=== PATIENT | female | born 1980 | race Caucasian/White ===

== ENCOUNTER 2023-05-02 15:35 | Emergency (ER) | payer BC, SELFPAY ==
[2023-05-02 15:51] VITALS: BP 154/79
[2023-05-02 16:31] LABS: % Basophils 0.6 % (0-2); % Eosinophils 2.3 % (0-6); % Immature Granulocytes 0.2 % (0-0.5); % Lymphocytes 22.5 % (20.5-51.1); % Monocytes 4.7 % (1.7-9.3); % Neutrophils 69.7 % (42.2-75.2); Absolute Eosinophils 0.1 10^3/uL (0-0.7); Absolute Lymphocytes 1.4 10^3/uL (1.2-3.4); Absolute Monocytes 0.3 10^3/uL (0.1-0.6); Absolute Neutrophils 4.3 10^3/uL (1.4-6.5); Hematocrit 37.2 % (37.0-47.0); Mean Corp Hgb Conc. 34.9 g/dL (33.0-37.0); Mean Corpuscular Hgb 30.3 pg (27.0-31.0); Mean Corpuscular Volume 86.7 fL (81.0-99.0); Nucleated Red Blood Cells % 0 %; Platelet Count 266 10^3/uL (130-400); Red Blood Cell Count 4.29 10^6/uL (4.20-5.40); Red Cell Dist. Width 13.2 % (11.5-14.5); White Blood Cell Count 6.2 10^3/uL (4.8-10.8)
[2023-05-02 16:40] LABS: INR 1.01; PT 13.3 Sec (11.4-14.6)
[2023-05-02 16:41] LABS: ALT (SGPT) 33 U/L (0-35); AST (SGOT) 32 U/L (14-36); Albumin 4.2 g/dl (3.5-5.0); Alkaline Phosphatase 88 U/L (38-126); Blood Urea Nitrogen 11 mg/dl (7-17); Calcium 9.3 mg/dl (8.4-10.2); Carbon Dioxide 29 mmol/L (22-30); Chloride 101 mmol/L (98-107); Glucose 107 mg/dl (70-99); Potassium 3.7 mmol/L (3.5-5.1); Sodium 136 mmol/L (135-145); Total Bilirubin 0.5 mg/dl (0.2-1.3); eGFR > 60.00
[2023-05-02 16:53] LABS: Troponin I < 0.012 ng/ml
--- NOTE | 2023-05-02 18:49 | ED.GENMED ---
History of Present Illness
General
Chief Complaint: Chest Pain
Source: patient
Exam Limitations: none
Time Seen by Provider: 05/02/23 18:13
Nursing documentation reviewed up to this point in time: agreed with
Travel History
Have you had any contact with someone who has COVID-19?: No
Do you have any symptoms of coronavirus? Fever > 100 degrees, chills, cough, shortness of breath, sore throat, loss of taste or smell, muscle aches, or headache?: No
History of Present Illness
History of Present Illness:
Patient is a 42-year-old female who presents to the ER for evaluation. Patient is concerned that she may have a' clot' in her left lower leg. She reports has a history of superficial clots in the past and she noticed an area of redness to the left
ankle yesterday. She does report the area is very sore. She also felt some discomfort her left posterior thigh today.
In addition, she had chest pain yesterday at 1 PM while sitting at home at work. She reports it has been less than 3 hours. She had no radiation of pain she did feel little tingling her arm but she was not short of breath with symptoms. Chest
pain resolved on its own but then redeveloped again at 2 PM today she described this is more of a tightness which the prompted her to come to the ER. Patient reports she has been very stressed at work and did consider anxiety as she does have a
history of anxiety.
She does not smoke no oral contraceptives.
She does not know what her cholesterol is does have PCP buy only goes when sick.
Past History
Past History
ED Past Medical History: Asthma and Other (Possible celiac disease)
ED Past Surgical History: Other (sinus surgery)
Social History
Tobacco: Non-smoker
Alcohol: None
Drug: None
Personal:
Living: with family
Family History
Family History: Other (Mother with a history of DVT during )
Review of Systems
Review of Systems
Allergies reviewed?: Yes
All Other Systems: ROS reviewed and negative except as documented in HPI and ROS
Constitutional: Reports no symptoms; Denies fever, fatigue or chills
EENT: Reports no symptoms
Respiratory: Reports no symptoms; Denies trouble breathing
Cardiac: Reports chest pain (resolved now ); Denies diaphoresis, palpitations or syncope
ABD/GI: Reports no symptoms
: Reports no symptoms
Musculoskeletal: Reports other (small area of redness to left lateral ankle )
Skin: Reports other (redness to left ankle )
Neurological: Reports no symptoms
Psychiatric: Reports no symptoms
Phy Exam
General Physical Exam
General Presentation: no apparent distress
General age: appears stated age
General Skin: warm and dry
General Habitus: normal
General Mental: alert
General Hydration: appears well hydrated
Cardiovascular Exam
Cardiovascular Exam: regular rate/rhythm, no murmur and normal peripheral pulses
Pulmonary Exam
Pulmonary Exam: lungs clear and no respiratory distress
Neurological Exam
Neurological Exam: alert and oriented x3
Musculoskeletal Exam
Musculoskeletal Exam: full ROM and other (small amt of erythema to left ankle mild tenderness )
Skin Exam
Skin Exam: normal color and warm/dry
Psychiatric Exam
Psychiatric Exam: normal mood/affect
Scores
Heart Score for Chest Pain Patients
STEMI patient?: Not applicable
Course
Orders/Labs/Results
Orders:
Orders
05/02/23 15:56
Electrocardiogram (*1) Urgent
Reason for Study: Chest Pain
EKG- Treatment ONCE
05/02/23 16:16
Complete Blood Count/With Diff Urgent
Comprehensive Metabolic Panel Urgent
Prothrombin Time Urgent
Troponin I Urgent
05/02/23 19:28
Venous Doppler Lwr Ext Left [US Periph Venous LOWER Ext LT] Urgent
Comment:
Reason For Exam: pain
05/02/23 19:48
DDimer [D-Dimer] Urgent
05/02/23 20:58
Chest [CR Chest - 2 Views ] Urgent
Comment:
Reason For Exam: cp
Abnormal Lab Results
05/02/23
16:16
Glucose 107 H mg/dl
(70-99)
05/02/23 16:16
05/02/23 16:16
Vital Signs
Initial and Last Documented VS:
Initial Vital Signs
Temp Pulse Resp BP Pulse Ox
98.2 F 87 20 154/79 96
05/02/23 15:51 05/02/23 15:51 05/02/23 15:51 05/02/23 15:51 05/02/23 15:51
Last Documented Vital Signs
Temp Pulse Resp BP Pulse Ox
98.3 F 90 13 133/79 98
05/02/23 19:28 05/02/23 19:28 05/02/23 19:28 05/02/23 19:28 05/02/23 19:28
MDM/Problems Addressed
Differential Diagnosis Includes:
Not limited to musculoskeletal chest pain, less likely ACS less likely PE possible DVT possible cellulitis, anxiety possible superficial thrombophlebitis
MDM/Problems Addressed:
Patient is a 42-year-old female who presented with chest pain patient had chest pain for several hours yesterday which resolved on its own but then had chest pain again today which the prompted her to come to the ER. She has no cardiac history.
She is unsure if her collapse she does not smoke. She does report history with grandparents of cardiac disease. She presents awake alert no acute distress asymptomatic no chest pain or shortness of breath here in the ER negative cardiac troponin
negative D-dimer negative chest x-ray. EKG NSR hr 73 no acute findings.
Patient has remained asymptomatic here in the ER will DC with chest pain hotline
With regards to patient's redness to the left ankle there is small amount of redness no documented superficial thrombophlebitis or DVT on ultrasound no fevers. Patient's white count is normal we will treat for mild cellulitis with close outpatient
follow-up with PCP.
Chronic conditions affecting care:
anxiety
*Radiology
Radiology exam reviewed: radiology read reviewed (No evidence of DVT of the left lower extremity)
*Pulse Oximetry
Patient hypoxic: no
*EKG
Interpreted by ED Provider?: Yes
Interpretation: normal
Heart Rate: 73
Rate: normal
Rhythm: sinus
QRS Pattern: normal QRS
Ischemia: no ischemia
*Pier Master Assistant Interpretation
Rate: normal
*Critical Care Note
Total Time (30-74mins, 75-104mins- exclusive of procedures): Not Applicable
ED Attending Note
-
Portions of this chart may have been created with voice recognition software.� Occasional wrong word or��sound alike� substitutions may have occurred due to the inherent limitations of voice recognition software.
Discharge Plan
Departure
Patient Disposition: Home (Routine Discharge)
Date of Disposition: 05/02/23
Time of Disposition: 22:43
Patient with high blood pressure during this ER visit?: Yes
Covid-19: Not Applicable
Discharge Problem:
Chest pain, mild cellulitis left ankle
Instructions: Cellulitis (Skin Infection), Adult (DC), Chest Pain DCA Follow Up, BLOOD PRESSURE
Prescriptions:
New
cephalexin 500 mg capsule
500 mg PO Q6H Qty: 28 0RF
No Action
multivitamin Tablet
1 tab PO DAILY
cetirizine [Zyrtec] 10 mg Tablet
10 mg PO DAILY
Vitamin C 100 mg Tablet,Chewable
200 mg PO DAILY
omeprazole 20 mg Tablet,Delayed Release (Dr/Ec)
20 mg PO DAILY
Referrals:
Darya Serna PA-C [Family Provider] -
Robert Carmen MD [Active] -
Activity Restrictions/Additional Instructions:
As discussed follow-up with cardiology. You are placed on the cardiology hotline you should receive a phone call in the next several days or if you do not please give the office a call to schedule an appointment.
Also as discussed a prescription for Keflex was sent to your pharmacy to treat for mild cellulitis of left ankle. Closely follow-up with your family doctor the next of days for reevaluation. Return if any worsening of symptoms of increased pain
redness red streaking fever chills
Interventions
Interventions:
*Risk Screen - Suicide Last Done: 05/02/23 15:51
*General Assessment Last Done: 05/02/23 15:51
*Neglect/Abuse Screening Last Done: 05/02/23 15:51
*ED COVID-19 Vaccine History Last Done: 05/02/23 19:27
ED- Cardiac Assessment Last Done: 05/02/23 19:23
ED- Pulmonary Assessment Last Done: 05/02/23 19:23
ED-Peripheral Vascular Assessment Last Done: 05/02/23 19:25
ED-Skin Assessment Last Done: 05/02/23 19:27
[2023-05-02 19:28] VITALS: BP 133/79
[2023-05-02 20:09] LABS: D-Dimer < 0.27 ug/mlFEU (0.00-0.50)
[2023-05-02] MEDS: KEFLEX 500 MG PO (22:47)
== END 2023-05-02 22:58 | disposition home or self-care (01) ==
LOC: EMR 15:35
PROVIDERS: Nurse Practitioner; EMERGENCY PHYSICIAN Student in an Organized Health Care Education/Training Program; FAMILY PHYSICIAN Physician Assistant Medical
DX: L03.116 Cellulitis of left lower limb (principal); R07.89 Other chest pain; J45.909 Unspecified asthma, uncomplicated; F41.9 Anxiety disorder, unspecified; Z82.49 Family history of ischemic heart disease and other diseases of the circulatory system
CPT/HCPCS: 99284; 71046; 80053; 84484; 85025; 85379; 85610; 93005; 93971

== ENCOUNTER → 2023-10-18 08:33 | Outpatient (REF) | payer BC, SELFPAY | LOC: HWWDC 08:33 | PROVIDERS: ATTENDING PHYSICIAN Physician Assistant Medical | DX: Z12.31 Encounter for screening mammogram for malignant neoplasm of breast (principal) | CPT/HCPCS: 77063; 77067 ==

== ENCOUNTER → 2023-12-21 16:26 | Outpatient (REF) | payer BC, SELFPAY | LOC: HWRAD 16:26 | PROVIDERS: ATTENDING PHYSICIAN Physician Assistant Medical | DX: R05.1 Acute cough (principal) | CPT/HCPCS: 71046 ==

== ENCOUNTER 2024-01-17 17:59 | Emergency (ER) | payer BC, SELFPAY ==
[2024-01-17 18:01] VITALS: BP 142/85
[2024-01-17 19:39] VITALS: BP 141/74
--- NOTE | 2024-01-17 19:56 | ED.GENMED ---
History of Present Illness
General
Chief Complaint: Breathing Problem
Source: patient
Exam Limitations: none
Time Seen by Provider: 01/17/24 19:05
Nursing documentation reviewed up to this point in time: agreed with
History of Present Illness
History of Present Illness:
43-year-old female with a history of mild asthma
Says she got sick with several infections starting mid November and ultimately in mid December had a cough with a high fever and was diagnosed with pneumonia.
Patient was treated with an antibiotic which she cannot recall. She said prior to that she had already had Augmentin and then a Z-Marek for an ear infection and bronchitis. She said she was also prescribed 7 days of prednisone 50 mg on along
with the antibiotic. She got the antibiotic for 10 days. Patient says her cough did improve somewhat with her albuterol and the antibiotics but never went away. It seems to have resurface over the last couple weeks. Then 5 days ago she noticed a
painful red palpable cordlike soft tissue mass in her posterior right thigh. Patient says she was having some calf pain as well. She has a history of superficial thrombophlebitis has been treated with either aspirin or NSAIDs, she is not sure
which. She has never been anticoagulated but her mom has a history of DVTs. Patient says that a few days later she started having burning chest pain with cough which is worse when she takes a deep breath. She went to her doctor today where she
was found to be wheezy, having a spastic cough and the provider was concerned about her having a PE so they sent her in. Patient has not had a new fever, hemoptysis, significant shortness of breath, exertional chest pain, vomiting or diarrhea.
There is no been no recent long travel
Past History
Past History
ED Past Medical History: Asthma and Other (Possible celiac disease)
ED Past Surgical History: Other (sinus surgery)
Social History
Tobacco: Non-smoker
Alcohol: None
Drug: None
Personal:
Living: with family
Family History
Family History: Other (Mother with a history of DVT during )
Review of Systems
Review of Systems
Allergies reviewed?: Yes
All Other Systems: Not applicable
Phy Exam
Physical Exam
Physical Exam:
GENERAL: Alert , in no apparent distress, occasional cough
EYE: pupils equal and reactive
NECK: Supple
ENT: b/l TM s clear, pharynx erythematous but no tonsillar hypertrophy or exudates
CARDIAC: Regular rate and rhythm, no edema
LUNGS: End expiratory wheezing, occasional spastic cough, no respiratory distress
ABDOMEN: Soft, without focal tenderness, no r/g, no cvat, normal bowel sounds
NEUROLOGICAL: Alert and oriented, no focal neuro deficits
SKIN: Warm and dry, skin intact.
Patient has about a 10 cm palpable erythematous cord in the posterior right thigh starting from just behind her knee and going proximally that is slightly tender
The calf is not swollen or tender
MUSCULOSKELETAL: No edema, well perfused.
PSYCH: Normal and appropriate interaction.
Course
Orders/Labs/Results
Orders:
Orders
01/17/24 19:26
Electrocardiogram (*1) Stat
Reason for Study: Other
Other Reason for Exam: pneumonia
CT Chest Pe Study Urgent
Comment: thrombophlebitis vs dvt
Reason For Exam: sob, hest pain, wheezing; pna 1 mo ago; superfiica
EKG- Treatment ONCE
Venous Doppler Lwr Ext Rt [US Periph Venous LOWER Ext RT] Urgent
Comment:
Reason For Exam: right leg superf thrombophleb vs dvt
01/17/24 19:34
Complete Blood Count/With Diff Urgent
Comprehensive Metabolic Panel Urgent
PTT Urgent
Prothrombin Time Urgent
01/17/24 21:56
Ipratropium/Albuterol Sulfate [Duoneb] 3 ml INH R NOW STA
Prednisone [Deltasone] 50 mg PO NOW STA
01/17/24 22:13
Aspirin Chewable [Low Strength Aspirin] 81 mg PO NOW STA
Abnormal Lab Results
01/17/24
19:34
RBC 3.93 L 10^6/uL
(4.20-5.40)
Hct 35.0 L %
(37.0-47.0)
MPV 10.5 H fL
(7.4-10.4)
Absolute Eos (auto) 0.9 H 10^3/uL
(0-0.7)
Eosinophils % 12.6 H %
(0-6)
BUN 6 L mg/dl
(7-17)
Glucose 116 H mg/dl
(70-99)
01/17/24 19:34
01/17/24 19:34
Vital Signs
Initial and Last Documented VS:
Initial Vital Signs
Temp Pulse Resp BP Pulse Ox
98.8 F 86 18 142/85 98
01/17/24 18:01 01/17/24 18:01 01/17/24 18:01 01/17/24 18:01 01/17/24 18:01
Last Documented Vital Signs
Temp Pulse Resp BP Pulse Ox
98.8 F 100 17 136/82 99
01/17/24 18:01 01/17/24 22:15 01/17/24 22:15 01/17/24 22:04 01/17/24 22:15
MDM/Problems Addressed
Differential Diagnosis Includes:
dvt, superficial thrombophlebitis, PE, bronchitis, asthma
MDM/Problems Addressed:
43 y/o F
h/o previous thrombophlebitis in ankle
no AC
had pna LLL 1 mo ago treated with steroids, abx, inhaler
never really lost the cough but started
ED Attending Note
-
Portions of this chart may have been created with voice recognition software.� Occasional wrong word or��sound alike� substitutions may have occurred due to the inherent limitations of voice recognition software.
Discharge Plan
Departure
Patient Disposition: Home (Routine Discharge)
Date of Disposition: 01/17/24
Time of Disposition: 22:02
Patient with high blood pressure during this ER visit?: No
Condition: Fair
Covid-19: Not Applicable
Discharge Problem:
Asthma, Superficial thrombophlebitis
Instructions: Superficial vein phlebitis and thrombosis, Asthma, Adult ED
Prescriptions:
New
albuterol sulfate 2.5 mg /3 mL (0.083 %) solution for nebulization
2.5 mg inhalation QID PRN (Reason: shortness of breath or wheezing) Qty: 75 0RF
prednisone 10 mg Tablet
See Rx Instructions .ROUTE .COMPLEX Qty: 30 0RF
Rx Instructions:
Take By Mouth:
50 mg daily x2 days, 40 mg daily x2 days,
30 mg daily x2 days, 20 mg daily x2 days, 10 mg daily x 2 days
omeprazole 20 mg capsule,delayed release(DR/EC)
20 mg PO DAILY Qty: 20 0RF
No Action
multivitamin Tablet
1 tab PO DAILY
cetirizine [Zyrtec] 10 mg Tablet
10 mg PO DAILY
Vitamin C 100 mg Tablet,Chewable
200 mg PO DAILY
omeprazole 20 mg Tablet,Delayed Release (Dr/Ec)
20 mg PO DAILY
cephalexin 500 mg capsule
500 mg PO Q6H Qty: 28 0RF
Referrals:
UNKNOWN - PT DOES,NOT KNOW [Unknown Provider] -
Activity Restrictions/Additional Instructions:
YOUR ULTRASOUND SHOWED A SUPERFICIAL NONOCCLUSIVE THROMBUS IN A VARICOSE VEIN IN YOUR THIGH BUT NO DEEP VEIN
THERE WAS NO BLOOD CLOT IN YOUR LUNGS
YOUR CAT SCAN SHOWED NO BLOOD CLOT OR PNEUMONIA IN YOUR LUNGS
YOU MAY HAVE MILD ENLARGEMENT OF YOUR PULMONARY ARTERY - YOU NEED TO FOLLOW UP WITH IT OPERATIONS MANAGER FOR FURTHER TESTING TO EVALUATE FOR PULMONARY ARTERIAL HYPERTENION
YOU ALSO INCIDENTALLY HAD SOME FATTY CHANGES TO YOUR LIVER (WATCH DIET AND ALCOHOL)_ AND SOME ARTHRITIS IN YOUR LOWER BACK.
TAKE PREDNISONE 50 MG X 2 DAYS, THEN 40 MG X 2 DAYS, THEN 30 MG X 2 DAYS THEN 20 MG X 2 DAYS THEN 10 MG X 2 DAYS
USE ALBUTEROL EVERY 4-6 HOURS NEEDED FOR COUGH/WHEEZING
RETURN FO RANY CONCERNS.
also take baby aspirin 81 mg daily for 5-7 days for the phlebitis.
make sure to use a stomach medication like omeprazole 20 mg while you are on steroids and aspirin.
Interventions
Interventions:
*Risk Screen - Suicide Last Done: 01/17/24 18:01
*General Assessment Last Done: 01/17/24 18:01
*Neglect/Abuse Screening Last Done: 01/17/24 18:01
ED- Fall Risk Assessment Last Done: 01/17/24 22:21
*ED COVID-19 Vaccine History Last Done: 01/17/24 18:01
*Nursing Disposition Last Done: 01/17/24 22:21
ED- Cardiac Assessment Last Done: 01/17/24 19:45
ED- Pulmonary Assessment Last Done: 01/17/24 19:45
Discharge Date and Time
Discharge Date/Time: 01/17/24 22:21
Print Language: ALBANIAN
[2024-01-17 19:57] LABS: ALT (SGPT) 34 U/L (0-35); AST (SGOT) 29 U/L (14-36); Alkaline Phosphatase 76 U/L (38-126); Blood Urea Nitrogen 6 mg/dl (7-17); Calcium 9.1 mg/dl (8.4-10.2); Carbon Dioxide 25 mmol/L (22-30); Chloride 104 mmol/L (98-107); Glucose 116 mg/dl (70-99); Potassium 4.2 mmol/L (3.5-5.1); Sodium 141 mmol/L (135-145); Total Bilirubin 0.3 mg/dl (0.2-1.3); Total Protein 6.4 g/dl (6.3-8.2); eGFR > 60.00
[2024-01-17 20:12] LABS: % Basophils 1.3 % (0-2); % Eosinophils 12.6 % (0-6); % Immature Granulocytes 0.1 % (0-0.5); % Lymphocytes 24.6 % (20.5-51.1); % Monocytes 5.2 % (1.7-9.3); % Neutrophils 56.2 % (42.2-75.2); Absolute Basophils 0.1 10^3/uL (0-0.2); Absolute Eosinophils 0.9 10^3/uL (0-0.7); Absolute Lymphocytes 1.7 10^3/uL (1.2-3.4); Absolute Monocytes 0.4 10^3/uL (0.1-0.6); Absolute Neutrophils 3.9 10^3/uL (1.4-6.5); Hemoglobin 12.2 g/dL (12.0-16.0); Mean Corp Hgb Conc. 34.9 g/dL (33.0-37.0); Mean Corpuscular Volume 89.1 fL (81.0-99.0); Mean Platelet Volume 10.5 fL (7.4-10.4); Nucleated Red Blood Cells % 0 %; Platelet Count 256 10^3/uL (130-400); Red Blood Cell Count 3.93 10^6/uL (4.20-5.40); Red Cell Dist. Width 13.9 % (11.5-14.5); White Blood Cell Count 6.9 10^3/uL (4.8-10.8)
[2024-01-17 20:15] LABS: INR 0.98; PT 13.5 Sec (11.4-14.6)
[2024-01-17] MEDS: DUONEB 3 ML INH (22:02)
[2024-01-17] MEDS: DELTASONE 50 MG PO (22:02)
[2024-01-17 22:04] VITALS: BP 136/82
[2024-01-17] MEDS: LOW STRENGTH ASPIRIN 81 MG PO (22:16)
== END 2024-01-17 22:21 | disposition home or self-care (01) ==
LOC: EMR 17:59
PROVIDERS: Physician Assistant; EMERGENCY PHYSICIAN Emergency Medicine; FAMILY PHYSICIAN Physician Assistant Medical
DX: J45.909 Unspecified asthma, uncomplicated (principal); I82.811 Embolism and thrombosis of superficial veins of right lower extremity
CPT/HCPCS: 94640; 99285; 71275; 80053; 85025; 85610; 85730; 93005; 93971; Q9967

== ENCOUNTER → 2024-02-12 12:35 | Outpatient (REF) | payer BC, SELFPAY | LOC: DHSLP 12:35 | PROVIDERS: ATTENDING PHYSICIAN Internal Medicine Critical Care Medicine; FAMILY PHYSICIAN Physician Assistant Medical | DX: G47.33 Obstructive sleep apnea (adult) (pediatric) (principal); R06.83 Snoring | CPT/HCPCS: 95800 ==

== ENCOUNTER → 2024-02-15 09:09 | Outpatient (REF) | payer BC, SELFPAY | LOC: HWRCS 09:09 | PROVIDERS: ATTENDING PHYSICIAN Internal Medicine Critical Care Medicine; FAMILY PHYSICIAN Physician Assistant Medical | DX: I27.20 Pulmonary hypertension, unspecified (principal) | CPT/HCPCS: 93306 ==

== ENCOUNTER 2024-07-01 11:04 | Outpatient (RCR) | payer BC, SELFPAY | END 2024-07-01 23:59 | disposition home or self-care (01) | LOC: RST 11:04 | PROVIDERS: ATTENDING PHYSICIAN Otolaryngology; FAMILY PHYSICIAN Internal Medicine | DX: R49.0 Dysphonia (principal); J45.909 Unspecified asthma, uncomplicated; Z98.890 Other specified postprocedural states | CPT/HCPCS: 92507; 92524 ==

== ENCOUNTER 2024-07-22 11:05 | Outpatient (RCR) | payer BC, SELFPAY | END 2024-07-22 23:59 | disposition home or self-care (01) | LOC: RST 11:05 | PROVIDERS: ATTENDING PHYSICIAN Otolaryngology; FAMILY PHYSICIAN Internal Medicine | DX: R49.0 Dysphonia (principal); J45.909 Unspecified asthma, uncomplicated; Z98.890 Other specified postprocedural states | CPT/HCPCS: 92507 ==

== ENCOUNTER 2024-08-21 08:05 | Outpatient (RCR) | payer BC, SELFPAY | END 2024-08-21 23:59 | disposition home or self-care (01) | LOC: RST 08:05 | PROVIDERS: ATTENDING PHYSICIAN Otolaryngology; FAMILY PHYSICIAN Internal Medicine | DX: R49.0 Dysphonia (principal); J45.909 Unspecified asthma, uncomplicated; Z98.890 Other specified postprocedural states | CPT/HCPCS: 92507 ==

== ENCOUNTER → 2025-01-09 08:01 | Outpatient (REF) | payer BC, SELFPAY | LOC: HWWDC 08:01 | PROVIDERS: ATTENDING PHYSICIAN Physician Assistant Medical | DX: Z12.31 Encounter for screening mammogram for malignant neoplasm of breast (principal) | CPT/HCPCS: 77063; 77067 ==

== ENCOUNTER → 2025-01-15 14:53 | Outpatient (REF) | payer BC, SELFPAY | LOC: HWRAD 14:53 | PROVIDERS: ATTENDING PHYSICIAN Physician Assistant Medical | DX: R22.9 Localized swelling, mass and lump, unspecified (principal) | CPT/HCPCS: 76882 ==